=== PATIENT | male | born 1995 | race Caucasian/White ===

== ENCOUNTER 2016-11-13 23:06 | Emergency (ER) | payer SELFPAY ==
[~2016-11-13] VITALS: Ht 175.3 cm; Wt 105.0 kg
[2016-11-13 23:27] VITALS: BP 134/78; PULSE 78; RESP 18; TEMP 98.7; O2SAT 98; O2SAT 99
[2016-11-13] MEDS ORDERED: SODIUM CHLOR 0.9% 1000 ML INJ 1,000 ML IV ONE (23:30)
[2016-11-13] MEDS ORDERED: ONDANSETRON HCL 4 MG/2 ML VIAL IV PUSH ONE (23:30)
--- NOTE | 2016-11-13 23:31 | PD ---
HPI Chief Complaint: Alcohol/Drug Intoxication Time Seen by Provider: 23:14 Travel History International Travel<30 days: No Contact w/Intl Traveler<30days: No History of Present Illness HPI Visiting on spring. According to EMS they were called for altered mental status person in front of a bar in [facility]. Patient was sitting on the ground fairly altered. He was placed in the ambulance and transported here. On transport here he had vomited several times smelling of alcohol. Fairly drunk on arrival states she has no complaints. [facility] Past Medical History Narrative Medical Unable to obtain Medical History: Unable to Obtain Past Surgical History Narrative Surgical Unable to obtain Social History Tobacco Use: No Allergies-Medications (Allergen,Severity, Reaction): Coded Allergies: UNOBTAINABLE (Unverified , 11/13/16) Reported Meds & Prescriptions Reported Meds & Active Scripts Active No Active Prescriptions or Reported Medications Review of Systems ROS Limitations: Altered Mental Status Physical Exam Narrative GENERAL: Well-developed well-nourished no apparent distress smells of alcohol. SKIN: Warm and dry. HEAD: Atraumatic. Normocephalic. EYES: Pupils equal and round. No scleral icterus. No injection or drainage. ENT: No nasal bleeding or discharge. Mucous membranes pink and moist. NECK: Trachea midline. No JVD. CARDIOVASCULAR: Regular rate and rhythm. No murmur appreciated. RESPIRATORY: No accessory muscle use. Clear to auscultation. Breath sounds equal bilaterally. GASTROINTESTINAL: Abdomen soft, non-tender, nondistended. Hepatic and splenic margins not palpable. Vomited once in the emergency department nonbilious and nonbloody emesis. MUSCULOSKELETAL: No obvious deformities. No clubbing. No cyanosis. No edema. NEUROLOGICAL: Awake and alert. No obvious cranial nerve deficits. Motor grossly within normal limits. Normal speech. PSYCHIATRIC: Appropriate mood and affect; insight and judgment normal. Data Data Last Documented VS Vital Signs Date Time Temp Pulse Resp B/P Pulse Ox O2 Delivery O2 Flow Rate FiO2 11/13/16 23:42 97 20 141/66 99 Room Air 11/13/16 23:27 98.7 Orders Electrocardiogram (11/13/16 23:14) Basic Metabolic Panel (Bmp) (11/13/16 23:14) Complete Blood Count With Diff (11/13/16 23:14) Blood Glucose (11/13/16 23:14) Ecg Monitoring (11/13/16 23:14) Iv Access Insert/Monitor (11/13/16 23:14) Oximetry (11/13/16 23:14) Alcohol (Ethanol) (11/13/16 23:14) Ondansetron Inj (Zofran Inj) (11/13/16 23:30) Lipase (11/13/16 23:22) Hepatic Functional Panel (11/13/16 23:22) Sodium Chlor 0.9% 1000 Ml Inj (Ns 1000 M (11/13/16 23:30) Labs Laboratory Tests Test 11/13/16 23:20 White Blood Count 9.2 TH/MM3 Red Blood Count 5.60 MIL/MM3 Hemoglobin 15.5 GM/DL Hematocrit 46.1 % Mean Corpuscular Volume 82.3 FL Mean Corpuscular Hemoglobin 27.7 PG Mean Corpuscular Hemoglobin 33.7 % Concent Red Cell Distribution Width 13.2 % Platelet Count 317 TH/MM3 Mean Platelet Volume 8.0 FL Neutrophils (%) (Auto) 51.9 % Lymphocytes (%) (Auto) 36.6 % Monocytes (%) (Auto) 9.5 % Eosinophils (%) (Auto) 1.3 % Basophils (%) (Auto) 0.7 % Neutrophils # (Auto) 4.8 TH/MM3 Lymphocytes # (Auto) 3.4 TH/MM3 Monocytes # (Auto) 0.9 TH/MM3 Eosinophils # (Auto) 0.1 TH/MM3 Basophils # (Auto) 0.1 TH/MM3 CBC Comment DIFF FINAL Differential Comment Total Bilirubin 0.2 MG/DL Direct Bilirubin 0.1 MG/DL Indirect Bilirubin 0.1 MG/DL Aspartate Amino Transf 28 U/L (AST/SGOT) Alanine Aminotransferase 43 U/L (ALT/SGPT) Alkaline Phosphatase 93 U/L Total Protein 7.5 GM/DL Albumin 4.1 GM/DL Lipase 83 U/L Sodium Level 141 MEQ/L Potassium Level 3.8 MEQ/L Chloride Level 103 MEQ/L Carbon Dioxide Level 28.8 MEQ/L Anion Gap 9 MEQ/L Blood Urea Nitrogen 13 MG/DL Creatinine 1.19 MG/DL Estimat Glomerular Filtration 76 ML/MIN Rate Random Glucose 96 MG/DL Calcium Level 8.3 MG/DL Ethyl Alcohol Level 315 MG/DL [facility] Medical Decision Making Medical Screen Exam Complete: Yes Emergency Medical Condition: Yes Differential Diagnosis Alcohol intoxication, substance abuse, dehydration. Narrative Course Patient 21-year-old male presents emergency department intoxicated while drinking a bar during spring. Vital signs are within normal limits, and he appears nontoxic. Given fluids and Zofran. On revisit he is sleeping soundly and in no apparent distress. Will be allowed to sleep it off in the emergency department on nursing reassessment if clinically sober could be discharged. Diagnosis Primary Impression: Emesis Qualified Code: R11.10 - Vomiting, intractability of vomiting not specified, presence of nausea not specified, unspecified vomiting type Additional Impression: Alcohol intoxication Scripts No Active Prescriptions or Reported Meds Neal Medina MD Nov 13, 2016 23:31
[2016-11-13 23:39] LABS: AUTOMATED NEUTROPHIL # 4.8 TH/MM3 (1.8-7.7); BASOPHIL # 0.1 TH/MM3 (0-0.2); BASOPHIL % 0.7 % (0.0-2.0); EOSINOPHIL # 0.1 TH/MM3 (0-0.4); EOSINOPHIL % 1.3 % (0.0-4.0); HEMATOCRIT 46.1 % (39.0-51.0); HEMO FLAGS DIFF FINAL; LYMPH % 36.6 % (9.0-44.0); LYMPHOCYTE # 3.4 TH/MM3 (1.0-4.8); MEAN CELL VOLUME 82.3 FL (80.0-100.0); MEAN CORPUSCULAR HEMOGLOBIN 27.7 PG (27.0-34.0); MEAN CORPUSCULAR HGB CONC 33.7 % (32.0-36.0); MONO % 9.5 % (0.0-8.0); NEUT % 51.9 % (16.0-70.0); PLATELET COUNT 317 TH/MM3 (150-450); RED CELL DISTRIBUTION WIDTH 13.2 % (11.6-17.2); WHITE BLOOD COUNT 9.2 TH/MM3 (4.0-11.0)
[2016-11-13 23:42] VITALS: BP 141/66; PULSE 97; RESP 20; O2SAT 99
[2016-11-13 23:54] LABS: BICARBONATE 28.8 MEQ/L (21.0-32.0); POTASSIUM 3.8 MEQ/L (3.5-5.1)
[2016-11-13 23:56] LABS: INDIRECT BILIRUBIN 0.1 MG/DL (0.0-0.8); TOTAL BILIRUBIN ADULT 0.2 MG/DL (0.2-1.0)
[2016-11-14 04:00] VITALS: BP 140/64; PULSE 94; RESP 14; O2SAT 97
== END 2016-11-14 10:04 | disposition home or self-care (01) ==
LOC: NEPC 23:06
DX: F10.129 Alcohol abuse with intoxication, unspecified (principal); R11.10 Vomiting, unspecified; Y90.8 Blood alcohol level of 240 mg/100 ml or more
CPT/HCPCS: 80048; 80076; 80320; 83690; 85025; 96361; 96374; 99285; J2405; J7030